=== PATIENT | female | born 1960 | race Caucasian/White ===

== ENCOUNTER 2024-01-10 19:39 | Emergency (ER) | payer OTHER ==
[2024-01-10] MEDS ORDERED: IBUPROFEN 400 MG TAB ONE (21:03)
[2024-01-10] MEDS ORDERED: ACETAMINOPHEN 500 MG TAB ONE (21:03)
[2024-01-10] MEDS ORDERED: methocarbamoL 750 MG TAB ONE (21:03)
--- NOTE | 2024-01-10 21:08 | RAD REPORT ---
EXAM DESCRIPTION: RAD - Foot Right 3 View - 01/10/2024 8:59 pm CLINICAL HISTORY: pain right foot COMPARISON: <Comparisons> FINDINGS: No acute fracture or dislocation is seen.
--- NOTE | 2024-01-10 21:49 | EDPHYS ---
Physician Documentation [facility] Name: Saira Love Age: 63 yrs Sex: Female : 1960 Arrival Date: 01/10/2024 Time: 19:39 Bed 16 Private MD: ED Physician Tripp Alford HPI: 01/09 20:04 This 63 yrs old Female presents to ER via Unassigned with complaints of Foot sp4 Injury. 01/10 20:02 63-year-old female presents with complaint of acute injury to the right foot in the sp4 chicken coop today. Patient states she walked into the chicken coop and developed pain in her right foot. . Historical: - Allergies: 01/09 20:17 Codeine; tm6 - PMHx: 20:17 Hypertensive disorder; Hypercholesterolemia; Hypothyroidism; tm6 - PSHx: 20:17 None; tm6 - Immunization history:: Client reports having NOT received the Covid vaccine. - Infectious Disease History:: Denies. - Social history:: Smoking status: Patient denies any tobacco usage or history of. Patient uses alcohol, but reports only rare drinking. - Family history:: not pertinent. ROS: 01/10 20:07 Constitutional: Negative for fever, chills, and weight loss, Positive Right foot pain sp4 All other systems are negative, Exam: 20:07 Constitutional: This is a well developed, well nourished patient who is awake, alert, sp4 and in no acute distress. Head/Face: Normocephalic, atraumatic. Eyes: Pupils equal round and reactive to light, extra-ocular motions intact. Lids and lashes normal. Conjunctiva and sclera are not injected. Cornea within normal limits. Periorbital areas with no swelling, redness, or edema. ENT: Nares patent. No nasal discharge, no septal abnormalities noted. Tympanic membranes are normal and external auditory canals are clear. Oropharynx with no redness, swelling, or masses, exudates, or evidence of obstruction, uvula midline. Mucous membranes moist. Neck: Trachea midline, no thyromegaly or masses palpated, and no cervical lymphadenopathy. Supple, full range of motion without nuchal rigidity, or vertebral point tenderness. Chest/axilla: Normal chest wall appearance and motion. Nontender with no deformity. No lesions are appreciated. Cardiovascular: Regular rate and rhythm with a normal S1 and S2. No gallops, murmurs, or rubs. Normal PMI, no JVD. No pulse deficits. Respiratory: Lungs have equal breath sounds bilaterally, clear to auscultation and percussion. No rales, rhonchi or wheezes noted. No increased work of breathing, no retractions or nasal flaring. Abdomen/GI: Soft, with normal bowel sounds. No distension or tympany. No guarding or rebound. No evidence of tenderness throughout. Back: No spinal tenderness. No costovertebral tenderness. Skin: Warm, dry with normal turgor. Normal color with no rashes, no lesions, and no evidence of cellulitis. MS/ Extremity: Pulses equal, no cyanosis. Neurovascular intact. Full, normal range of motion. Neuro: Awake and alert, GCS 15, oriented to person, place, time, and situation. Cranial nerves II-XII grossly intact. Motor strength 5/5 in all extremities. Sensory grossly intact. Psych: Awake, alert, with orientation to person, place and time. Behavior, mood, and affect are within normal limits Vital Signs: 01/09 20:14 BP 146 / 73; Pulse 78; Resp 19; Temp 98.3(O); Pulse Ox 100% on R/A; Weight 81.65 kg; tm6 Height 5 ft. 2 in. ; Pain 10/10; 20:14 Body Mass Index 32.92 (81.65 kg, 157.48 cm) tm6 20:14 Pain Scale: Adult tm6 Juan Coma Score: 01/10 20:07 Eye Response: spontaneous(4). Motor Response: obeys commands(6). Verbal Response: sp4 oriented(5). Total: 15. Procedures: 20:09 Splinting: Splint applied to right gutierrez, anterior aspect of right ankle and dorsum of sp4 right foot using Ortho 3D boot, applied by myself. Examined by me, post splint application: neurovascular intact, 2+ distal pulses palpable, brisk capillary refill noted, Patient tolerated well, Patient states she has her own crutches at home . MDM: 01/09 20:12 Patient medically screened. sp4 01/10 20:09 Differential diagnosis: fracture, sprain. Data reviewed: vital signs, nurses notes. sp4 01/09 20:26 Order name: Foot Right 3 View XRAY; Complete Time: 21:41 sp4 01/09 21:47 Order name: Orthopedic shoe: Right foot Ortho boot - applied by MD islas Administered Medications: 01/09 21:07 Drug: Ibuprofen PO 800 mg PO once Route: PO; [facility] 22:32 Follow up: Response: Marked relief of symptoms; Pain is decreased [facility] 21:07 Drug: Acetaminophen PO 1000 mg PO once Route: PO; [facility] 22:33 Follow up: Response: No adverse reaction; Pain is decreased [facility] 21:07 Drug: Methocarbamol PO 1500 mg PO once Route: PO; [facility] 22:32 Follow up: Response: No adverse reaction; Marked relief of symptoms; Pain is decreased [facility] Disposition: 01/10 20:20 Chart complete. sp4 Disposition Summary: 01/10/24 21:49 Discharge Ordered Notes: Location: Home sp4 Problem: new sp4 Symptoms: have improved sp4 Condition: Stable sp4 Diagnosis - Sprain of tarsal ligament of right foot sp4 - Other sprain of right foot sp4 Followup: sp4 - With: Private Physician - When: 7 - 10 days - Reason: Re-evaluation by your physician Discharge Instructions: - Discharge Summary Sheet sp4 - Foot Sprain sp4 Forms: - Patient Portal Instructions sp4 Prescriptions: - methocarbamol 750 mg Oral tablet - take 2 tablets ORAL route every 8 hours for 3 days PRN foot pain; 60 tablet; sp4 Refills: 0, Product Selection Permitted Signatures: Dispatcher [employer] Tripp Montes MD MD sp4 Cory Nguyen RN RN tm6 Karen Andersen RN RN jm12
--- NOTE | 2024-01-10 21:49 | ER ---
Nurse's Notes [facility] Name: Saira Love Age: 63 yrs Sex: Female : 1960 Arrival Date: 01/10/2024 Time: 19:39 Bed 16 Private MD: Diagnosis: Sprain of tarsal ligament of right foot;Other sprain of right foot Presentation: 01/09 20:16 Chief complaint: Patient states: hurt right foot when going into her chicken coop. Says tm6 she possibly twisted it and stepped down too hard. Coronavirus screen: Vaccine status: Patient reports being unvaccinated. Ebola Screen: Patient negative for fever greater than or equal to 101.5 degrees Fahrenheit, and additional compatible Ebola Virus Disease symptoms Patient denies exposure to infectious person. Patient denies travel to an Ebola-affected area in the 21 days before illness onset. No symptoms or risks identified at this time. Initial Sepsis Screen: Does the patient meet any 2 criteria? No. Patient's initial sepsis screen is negative. Does the patient have a suspected source of infection? No. Patient's initial sepsis screen is negative. Risk Assessment: Do you want to hurt yourself or someone else? Patient reports no desire to harm self or others. Onset of symptoms was January 10, 2024 at 08:30. 20:16 Method Of Arrival: Ambulatory tm6 20:16 Acuity: LTARELL 4 tm6 Triage Assessment: 20:17 General: Appears in no apparent distress. Behavior is calm, cooperative. Pain: tm6 Complains of pain in right foot Pain does not radiate. Pain currently is 10 out of 10 on a pain scale. Pain began 1 day ago. EENT: No signs and/or symptoms were reported regarding the EENT system. Neuro: Level of Consciousness is awake, alert, obeys commands, Oriented to person, place, time, situation. Cardiovascular: Patient's skin is warm and dry. Respiratory: Airway is patent Respiratory effort is even, unlabored, Respiratory pattern is regular, symmetrical. GI: No signs and/or symptoms were reported involving the gastrointestinal system. Abdomen is round. : No signs and/or symptoms were reported regarding the genitourinary system. Derm: No signs and/or symptoms reported regarding the dermatologic system. Musculoskeletal: Reports pain in right foot since 0830. Pain is 10 out of 10 on a pain scale. Historical: - Allergies: 20:17 Codeine; tm6 - PMHx: 20:17 Hypertensive disorder; Hypercholesterolemia; Hypothyroidism; tm6 - PSHx: 20:17 None; tm6 - Immunization history:: Client reports having NOT received the Covid vaccine. - Infectious Disease History:: Denies. - Social history:: Smoking status: Patient denies any tobacco usage or history of. Patient uses alcohol, but reports only rare drinking. - Family history:: not pertinent. Screenin:40 [facility] ED Fall Risk Assessment (Adult) History of falling in the last 3 months, jm12 including since admission No falls in past 3 months (0 pts) Confusion or Disorientation No (0 pts) Intoxicated or Sedated No (0 pts) Impaired Gait No (0 pts) Mobility Assist Device Used No (0 pt) Altered Elimination No (0 pt) Score/Fall Risk Level 0 - 2 = Low Risk. Abuse screen: Denies threats or abuse. Denies injuries from another. Nutritional screening: No deficits noted. Tuberculosis screening: No symptoms or risk factors identified. Assessment: 20:39 General: Appears in no apparent distress. Behavior is calm, cooperative. Pain: jm12 Complains of pain in right foot. Neuro: No deficits noted. Cardiovascular: No deficits noted. Respiratory: No deficits noted. GI: No deficits noted. No signs and/or symptoms were reported involving the gastrointestinal system. : No deficits noted. No signs and/or symptoms were reported regarding the genitourinary system. EENT: No deficits noted. No signs and/or symptoms were reported regarding the EENT system. Derm: No deficits noted. No signs and/or symptoms reported regarding the dermatologic system. Musculoskeletal: Reports pain in right foot. Vital Signs: 20:14 BP 146 / 73; Pulse 78; Resp 19; Temp 98.3(O); Pulse Ox 100% on R/A; Weight 81.65 kg; tm6 Height 5 ft. 2 in. ; Pain 10/10; 20:14 Body Mass Index 32.92 (81.65 kg, 157.48 cm) tm6 20:14 Pain Scale: Adult tm6 Jaun Coma Score: 0824 20:07 Eye Response: spontaneous(4). Motor Response: obeys commands(6). Verbal Response: sp4 oriented(5). Total: 15. ED Course: 01/09 19:41 Patient arrived in ED. jj6 20:04 Tripp Alford MD is Attending Physician. sp4 20:17 Triage completed. tm6 20:17 Arm band placed on right wrist. tm6 21:00 Foot Right 3 View XRAY In Process Unspecified. EDMS Administered Medications: 21:07 Drug: Ibuprofen PO 800 mg PO once Route: PO; 12 22:32 Follow up: Response: Marked relief of symptoms; Pain is decreased jm12 21:07 Drug: Acetaminophen PO 1000 mg PO once Route: PO; jm12 22:33 Follow up: Response: No adverse reaction; Pain is decreased jm12 21:07 Drug: Methocarbamol PO 1500 mg PO once Route: PO; jm12 22:32 Follow up: Response: No adverse reaction; Marked relief of symptoms; Pain is decreased [facility] Outcome: 21:49 Discharge ordered by . sp4 21:55 Discharged to home ambulatory, jm12 21:55 Condition: stable [facility] 21:55 Discharge instructions given to patient, Instructed on discharge instructions, follow up and referral plans. medication usage, Demonstrated understanding of instructions, follow-up care, medications, 22:33 Patient left the ED. jm12 Signatures: Dispatcher [employer] EDMS Jet Kyara jj6 Tripp Alford MD MD sp4 Cory Nguyen RN RN 6 Karen Andersen RN RN 12
[2024-01-10 22:38] VITALS: BP 146/73; TEMP 98.3; O2SAT 100
== END 2024-01-10 22:33 | disposition home or self-care (01) ==
LOC: ER 19:39
DX: S93.611A Sprain of tarsal ligament of right foot, initial encounter (principal); S93.691A Other sprain of right foot, initial encounter
CPT/HCPCS: 99283